=== PATIENT | female | born 1990 | race Hispanic/Latino ===

== ENCOUNTER 2016-06-19 16:49 | Emergency (ER) | payer SELFPAY ==
[~2016-06-19] VITALS: Ht 152.4 cm; Wt 64.0 kg
[2016-06-19 18:03] LABS: URINE BILIRUBIN - DIPSTICK NEGATIVE (NEGATIVE); URINE BLOOD DIPSTICK NEGATIVE (NEGATIVE); URINE CLARITY CLEAR; URINE COLOR YELLOW; URINE GLUCOSE - DIPSTICK NEGATIVE (NEGATIVE); URINE KETONE TRACE mg/dL (NEGATIVE); URINE LEUK ESTERASE NEGATIVE (Negative); URINE NITRITE - DIPSTICK NEGATIVE (Negative); URINE PROTEIN - DIPSTICK TRACE mg/dL (NEG-TRACE); URINE SPECIFIC GRAVITY >=1.030; URINE UROBILINOGEN - DIPSTICK 0.2 E.U./dL (0.2)
[2016-06-19] MEDS ORDERED: NAPROXEN375 MG PO (19:07)
[2016-06-19 19:09] VITALS: BP 124/83
== END 2016-06-19 19:27 | disposition home or self-care (01) | DRG 392 ==
LOC: ED 16:49
PROVIDERS: Emergency Medicine
DX: R10.2 Pelvic and perineal pain (principal); N83.202 Unspecified ovarian cyst, left side

== ENCOUNTER 2018-10-04 15:42 | Emergency (ER) | payer OTHER ==
[~2018-10-04] VITALS: Ht 152.4 cm; Wt 65.0 kg
[~2018-10-04 15:42] MED LIST: NAPROXEN375 MG PO
[2018-10-04] MEDS ORDERED: BIRTH CONTROL (15:55)
[2018-10-04] MEDS ORDERED: TRAMADOL HYDROC50 MG PO (16:53)
[2018-10-04 16:58] VITALS: BP 124/84
== END 2018-10-04 17:13 | disposition home or self-care (01) | DRG 563 ==
LOC: ED 15:42
DX: S93.402A Sprain of unspecified ligament of left ankle, initial encounter (principal); X50.0XXA Overexertion from strenuous movement or load, initial encounter; Y93.89 Activity, other specified; Y92.89 Other specified places as the place of occurrence of the external cause; Y99.0 Civilian activity done for income or pay

== ENCOUNTER 2018-10-07 10:14 | Emergency (ER) | payer OTHER ==
[~2018-10-07] VITALS: Ht 152.4 cm; Wt 75.0 kg
[~2018-10-07 10:14] MED LIST changes: +BIRTH CONTROL; +TRAMADOL HYDROC50 MG PO
[2018-10-07 12:06] VITALS: BP 132/60
== END 2018-10-07 12:07 | disposition home or self-care (01) | DRG 563 ==
LOC: ED 10:14
DX: S93.402A Sprain of unspecified ligament of left ankle, initial encounter (principal); X50.0XXA Overexertion from strenuous movement or load, initial encounter; Y99.0 Civilian activity done for income or pay

== ENCOUNTER 2020-01-03 12:37 | Emergency (ER) | payer OTHER ==
[~2020-01-03] VITALS: Ht 152.4 cm; Wt 78.0 kg
[2020-01-03] MEDS ORDERED: CLINDAMYCIN300 M1 PO (14:44)
[2020-01-03 14:50] VITALS: BP 110/72
== END 2020-01-03 14:50 | disposition home or self-care (01) ==
LOC: ED 12:37
DX: K08.89 Other specified disorders of teeth and supporting structures (principal)